=== PATIENT | female | born 1940 | race Caucasian/White ===

== ENCOUNTER 2021-03-02 15:55 | Emergency (ER) | payer MEDICARE, BC ==
[~2021-03-02] VITALS: Ht 137.2 cm; Wt 46.4 kg
[2021-03-02 18:52] LABS: BASOPHILS % (AUTO) 1.4 % (0-1); EOSINOPHILS % (AUTO) 1.1 % (0-6); HEMATOCRIT 33.2 % (35.0-45.0); HEMOGLOBIN 11.5 g/dl (12.0-16.0); LYMPHOCYTES # (AUTO) 0.6 X10'3 (1.1-4.8); LYMPHOCYTES % (AUTO) 29.2 % (21-51); MEAN CORPUSCULAR HEMOGLOBIN 38.6 PG (27.0-31.0); MEAN CORPUSCULAR HGB CONC 34.5 g/dL (33.0-36.5); MEAN CORPUSCULAR VOLUME 111.9 FL (78-98); MEAN PLATELET VOLUME 8.4 FL (7.4-10.4); MONOCYTES # (AUTO) 0.1 X10'3 (0-0.9); MONOCYTES % (AUTO) 7.2 % (2-12); NEUTROPHILS # (AUTO) 1.2 X10'3 (1.8-7.7); NEUTROPHILS % (AUTO) 61.1 % (42-75); PLATELET COUNT 302 X10'3 (140-440); RED BLOOD COUNT 2.97 X10'6 (4.20-5.60); RED CELL DISTRIBUTION WIDTH 18.9 % (11.5-14.5)
[2021-03-02 19:00] LABS: ALANINE AMINOTRANSFERASE 39 U/L (12-78); ALBUMIN 3.2 G/DL (3.4-5.0); ALBUMIN/GLOBULIN RATIO 0.8 (1.1-1.5); ALKALINE PHOSPHATASE 97 IU/L (46-116); ANION GAP 11 (8-16); ASPARTATE AMINO TRANSFERASE 70 U/L (10-37); BILIRUBIN,TOTAL 0.2 MG/DL (0.1-1.0); BLOOD UREA NITROGEN 19 MG/DL (7-18); BUN/CREATININE RATIO 18.4 (6.6-38.0); CALCIUM 9.2 MG/DL (8.5-10.1); CHLORIDE 99 MMOL/L (99-107); CREATININE 1.03 MG/DL (0.40-0.90); GLUCOSE 99 MG/DL (70-104); POTASSIUM 4.5 MMOL/L (3.5-5.1); SODIUM 134 MMOL/L (135-145); TOTAL CARBON DIOXIDE 24.2 MMOL/L (24-32); TOTAL PROTEIN 7.2 G/DL (6.4-8.2); eGFR 52 ML/MIN
[2021-03-02] MEDS ORDERED: iohexol 300mg/ml 100ml inj. ONE (20:02)
[2021-03-02 20:11] LABS: ANISOCYTOSIS 2+; PLATELET ESTIMATE NORMAL; POLYCHROMASIA FEW; TOTAL CELLS COUNTED 100
[2021-03-02] MEDS ORDERED: HYDROcodone/acetaminophen 5mg/325mg tablet PO ONE (21:30)
[2021-03-02 22:04] VITALS: BP 165/61
[2021-03-03] MEDS ORDERED: HYDR-3965 PO (16:45)
== END 2021-03-02 22:07 | disposition home or self-care (01) ==
LOC: ER 15:55
DX: R60.0 Localized edema (principal); Z88.1 Allergy status to other antibiotic agents; Z79.899 Other long term (current) drug therapy
CPT/HCPCS: 36415; 74177; 80053; 83880; 85007; 85025; 99285; Q9967

== ENCOUNTER 2021-03-03 13:11 | Emergency (ER) | payer MEDICARE, BC ==
[~2021-03-03] VITALS: Ht 137.2 cm; Wt 46.4 kg
[2021-03-03 13:35] VITALS: BP 142/56
[2021-03-03] MEDS ORDERED: HYDR-3965 PO (16:45)
[2021-03-03] MEDS ORDERED: HYDROcodone/acetaminophen 5mg/325mg tablet PO ONE (16:50)
== END 2021-03-03 17:34 | disposition home or self-care (01) ==
LOC: ER 13:11
DX: M79.605 Pain in left leg (principal); Z88.1 Allergy status to other antibiotic agents; Z79.899 Other long term (current) drug therapy
CPT/HCPCS: 99284